=== PATIENT | female | born 1980 | race American Indian/Alaskan Native ===

== ENCOUNTER 2021-10-07 15:34 | Emergency (ER) | payer SELFPAY ==
[2021-10-07] MEDS ORDERED: SODIUM CHLORIDE 0.9% 1000 ML 1,000 ML IV ONE (17:26)
--- NOTE | 2021-10-07 18:19 | Emergency Department Report ---
HPI - General Chief Complaint: Weakness Time Seen by Provider: 10/07/21 16:47 - HPI HPI: Room 18 Patient is a 41-year-old female present with a chief complaint of dizziness and weakness. The patient states her symptoms began approximate 2 weeks ago with weakness shortness of breath nasal congestion. The patient states she went to see a nurse practitioner Shay was not her normal healthcare provider but was referred to her by a friend. There the patient tested negative for COVID was diagnosed with bronchitis and given several medications. Patient states she felt better approximate 1 week later however she continued to have weakness in her leg, elevated heart rate nausea and diaphoresis. The patient had blood drawn and reviewed her labs with this nurse practitioner Shay the patient was found to have a low TSH and was diagnosed with thyrotoxicosis. Patient was taken off of her levothyroxine as initiated on methimazole. Patient states she continues have headaches feels weakness in her leg feels near syncopal at times so she came to the emergency department for evaluation. 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, right wrist surgery, right knee surgery - Family History Family history: no significant - Social History Smoking Status: Never Smoker Substance Use Type: None (Denies illicit drug use), Alcohol (Occasional) ED Review of Systems ROS: Stated complaint: THYROID TOXICOSIS Other details as noted in HPI Constitutional: fever Eyes: denies: eye pain ENT: denies: throat pain Respiratory: no symptoms reported Cardiovascular: palpitations Endocrine: excessive sweating Gastrointestinal: denies: abdominal pain Genitourinary: denies: dysuria Musculoskeletal: denies: back pain Neurological: headache Physical Exam - Physical Exam Vital Signs: Vital Signs 10/07/21 15:40 Temperature 97.9 F Pulse Rate 69 Respiratory 24 Rate Blood Pressure 153/101 [Right] Physical Exam: GENERAL: The patient is well-developed well-nourished female lying on stretcher not appearing to be in acute distress. [] HEENT: Normocephalic. Atraumatic. Extraocular motions are intact. Patient has moist mucous membranes. NECK: Supple. Trachea midline CHEST/LUNGS: Clear to auscultation. There is no respiratory distress noted. HEART/CARDIOVASCULAR: Regular. There is no tachycardia. There is no gallop rub or murmur. ABDOMEN: Abdomen is soft, nontender. Patient has normal bowel sounds. There is no abdominal distention. SKIN: There is no rash. There is no edema. There is no diaphoresis. NEURO: The patient is awake, alert, and oriented. The patient is cooperative. The patient has no focal neurologic deficits. The patient has normal speech. Cranial nerves II through XII grossly intact. No nystagmus. GCS 15 MUSCULOSKELETAL: There is no evidence of acute injury. ED Course Vital Signs 10/07/21 15:40 Temperature 97.9 F Pulse Rate 69 Respiratory 24 Rate Blood Pressure 153/101 [Right] ED Medical Decision Making - Lab Data Result diagrams: 10/07/21 17:27 10/07/21 17:27 Laboratory Tests 10/07/21 10/07/21 10/07/21 17:27 17:27 17:47 WBC 7.3 RBC 5.23 H Hgb 14.4 H Hct 45.4 H MCV 87 MCH 28 MCHC 32 RDW 13.9 Plt Count 267 Lymph % (Auto) Measurement Technician Maries % (Auto) Measurement Technician Eos % (Auto) Measurement Technician Baso % (Auto) Measurement Technician Lymph # (Auto) Measurement Technician Maries # (Auto) Measurement Technician Eos # (Auto) Measurement Technician Baso # (Auto) Measurement Technician Seg Neutrophils % Measurement Technician Seg Neutrophils # Measurement Technician Sodium 140 Potassium 3.8 Chloride 105.5 Carbon Dioxide 23 Anion Gap 15 BUN 11 Creatinine 0.7 Estimated GFR > 60 BUN/Creatinine Ratio 16 Glucose 92 Calcium 9.2 Magnesium 2.30 Total Bilirubin < 0.20 AST 20 ALT 27 Alkaline Phosphatase 46 Total Creatine Kinase 147 H CK-MB (CK-2) 1.5 CK-MB (CK-2) Rel Index 1.0 Troponin T < 0.010 Total Protein 8.0 Albumin 4.8 Albumin/Globulin Ratio 1.5 Free T4 0.65 L Urine Color Urine Turbidity Specific [place] (Man) Ur Protein (Man) Ur Ketones (Man) Urine Bilirubin (Man) Urine WBC (Auto) Urine RBC (Auto) U Epithel Cells (Auto) Urine RBC (Manual) Urine Opiates Screen Urine Methadone Screen Ur Barbiturates Screen Ur Phencyclidine Scrn Ur Amphetamines Screen U Benzodiazepines Scrn Urine Cocaine Screen U Marijuana (THC) Screen Plasma/Serum Alcohol 10/07/21 10/07/21 10/07/21 17:47 19:26 19:26 WBC RBC Hgb Hct MCV MCH MCHC RDW Plt Count Lymph % (Auto) Maries % (Auto) Eos % (Auto) Baso % (Auto) Lymph # (Auto) Maries # (Auto) Eos # (Auto) Baso # (Auto) Seg Neutrophils % Seg Neutrophils # Sodium Potassium Chloride Carbon Dioxide Anion Gap BUN Creatinine Estimated GFR BUN/Creatinine Ratio Glucose Calcium Magnesium Total Bilirubin AST ALT Alkaline Phosphatase Total Creatine Kinase CK-MB (CK-2) CK-MB (CK-2) Rel Index Troponin T Total Protein Albumin Albumin/Globulin Ratio Free T4 Urine Color Colorless Urine Turbidity Clear Specific [place] (Man) 1.000 L Ur Protein (Man) Negative Ur Ketones (Man) Negative Urine Bilirubin (Man) Negative Urine WBC (Auto) < 1.0 Urine RBC (Auto) < 1.0 U Epithel Cells (Auto) 1.0 Urine RBC (Manual) 6.0 Urine Opiates Screen Negative Urine Methadone Screen Negative Ur Barbiturates Screen Negative Ur Phencyclidine Scrn Negative Ur Amphetamines Screen Negative U Benzodiazepines Scrn Negative Urine Cocaine Screen Positive U Marijuana (THC) Screen Positive Plasma/Serum Alcohol < 0.01 - EKG Data -: EKG Interpreted by Tn EKG shows normal: sinus rhythm Rate: normal - EKG Data When compared to previous EKG there are: previous EKG unavailable Interpretation: nonspecific ST-T wave harish - Radiology Data Radiology results: report reviewed (CT head), image reviewed (CT head) [facility] [address] [place] [address] Cat Scan Report Signed Patient: SARAVANAN DEMPSEY MR#: [id number] [birth year] : 1980 Acct:[id number] Age/Sex: 41 / F ADM Date: 10/07/21 Loc: ED Attending Dr: Ordering Physician: TIMBO HUNT MD Date of Service: 10/07/21 Procedure(s): CT head/brain wo con Accession Number(s): [id number] cc: TIMBO HUNT MD CT head/brain wo con INDICATION: Dizziness. TECHNIQUE: Routine CT head. All CT scans at this location are performed using CT dose reduction for ALARA by means of automated exposure control. COMPARISON: None. FINDINGS: Intracranial: Spencer-white matter differentiation is maintained. No intracranial hemorrhage. No extra axial collection. No hydrocephalus. No herniation. Empty appearance of sella. Sinuses: Paranasal sinuses and mastoid air cells are essentially clear. Orbits: Globes are intact. Calvarium: No acute fracture. IMPRESSION: 1. No acute intracranial abnormality. Signer Name: Seng Valadez MD Signed: 10/07/2021 7:26 PM Workstation Name: [id number] Transcribed By: HUNTER Dictated By: Seng Valadez MD Electronically Authenticated By: Seng Valadez MD Signed Date/Time: 10/07/211925 DD/ 24 TD/TT: - Differential Diagnosis Hypothyroidism, dehydration, intracranial mass, Critical care attestation.: If time is entered above; I have spent that time in minutes in the direct care of this critically ill patient, excluding procedure time. ED Disposition Clinical Impression: Hypothyroidism Disposition: 01 HOME / SELF CARE / HOMELESS Is pt being admited?: No Does the pt Need Aspirin: No Condition: Stable Instructions: Hypothyroidism Additional Instructions: Return to the emergency department should you develop worsening symptoms, inability to tolerate food or liquids, high fever or any other concerns Referrals: [facility] [Provider Group] - 3-5 Days
[2021-10-07 18:29] LABS: Hematocrit 45.4 % (30.3-42.9); Hemoglobin 14.4 gm/dl (10.1-14.3); Mean Corpuscular HGB Conc 32 % (30-34); Mean Corpuscular Volume 87 fl (79-97); Platelet Count 267 K/mm3 (140-440); Red Blood Count 5.23 M/mm3 (3.65-5.03); Red Cell Distribution Width 13.9 % (13.2-15.2)
[2021-10-07 18:46] LABS: Alanine Aminotransferase 27 units/L (7-56); Albumin 4.8 g/dL (3.9-5); BUN/Creatinine Ratio 16; Blood Urea Nitrogen 11 mg/dL (7-17); Calcium 9.2 mg/dL (8.4-10.2); Creatine Kinase MB 1.5 ng/mL (0.0-4.0); Hemolysis Index 11
[2021-10-07 18:56] LABS: Free T4 (Free Thyroxine) 0.65 ng/dL (0.76-1.46)
[2021-10-07 19:12] VITALS: BP 149/85
--- NOTE | 2021-10-07 19:30 | Cat Scan Report ---
CT head/brain wo con INDICATION: Dizziness. TECHNIQUE: Routine CT head. All CT scans at this location are performed using CT dose reduction for A ALICJA by means of automated exposure control. COMPARISON: None. FINDINGS: Intracranial: Spencer-white matter differentiation is maintained. No intracranial hemorrhage. No extra a xial collection. No hydrocephalus. No herniation. Empty appearance of sella. Sinuses: Paranasal sinuses and mastoid air cells are essentially clear. Orbits: Globes are intact. Calvarium: No acute fracture. IMPRESSION: 1. No acute intracranial abnormality. Signer Name: Seng Valadez MD Signed: 10/07/2021 7:26 PM Workstation Name: [id number]
[2021-10-07 20:19] LABS: Color,Urine Colorless (Yellow)
[2021-10-07 20:30] LABS: WBC,Urine < 1.0 /HPF (0.0-6.0)
[2021-10-07 20:41] LABS: Amphetamine Screen,Urine Negative; Benzodiazepines Screen,Urine Negative; Methadone Screen,Urine Negative; Opiate Screen,Urine Negative
[2021-10-07 20:53] LABS: Cannabinoid Screen,Urine Positive; Cocaine Screen,Urine Positive
[2021-10-07] MEDS ORDERED: BUTALB/ACETAMINOPHEN/CAFFEINE TAB PO ONE (20:54)
[2021-10-07 20:58] LABS: RBC,Urine < 1.0 /HPF (0.0-6.0)
--- NOTE | 2021-10-09 21:46 | Electrocardiograph Report ---
[facility] Test Date: 2021-10-07 Test Time: 20:39:35 Pat Name: SARAVANAN DEMPSEY Department: Room: Gender: F Videogame Designer: LJ : 1980 Requested By: FRANCISCO CAUSEY Order Number: [id number] Reading MD: Eric Daniel Measurements Intervals [place] Rate: 60 P: 33 CA: 179 QRS: 20 QRSD: 101 T: 25 QT: 440 QTc: 438 Interpretive Statements Sinus arrhythmia Probable anteroseptal infarct, old No previous ECG available for comparison Electronically Signed On 10-09-2021 21:46:09 EDT by Eric Daniel
== END 2021-10-07 21:57 | disposition home or self-care (01) ==
LOC: ED 15:34
DX: E03.9 Hypothyroidism, unspecified (principal); K21.9 Gastro-esophageal reflux disease without esophagitis; J45.909 Unspecified asthma, uncomplicated; Z72.89 Other problems related to lifestyle; Z79.899 Other long term (current) drug therapy
CPT/HCPCS: 36415; 70450; 80053; 80307; 81001; 82550; 82553; 83735; 84439; 84443; 84484; 85025; 93005; 96360; 99284; J7030; 80320; G0480